=== PATIENT | female | born 1990 | race Native Hawaiian/Other Pacific Islander ===

== ENCOUNTER 2024-01-23 05:48 | Observation (INO) ==
--- NOTE | 2024-01-23 06:16 | History & Physical Report ---
Date of Service January 23, 2024 Assessment & Plan (1) premature rupture of membranes (PPROM) with unknown onset of labor: Plan: Patient is a transfer from [facility] practice that she had seen us earlier in the but had severe IUGR early in the last seen by 32 weeks she reported rupture of membranes approximately 30 minutes ago a big gush of clear fluid no contractions states her baby is moving she is concerned because her baby is small and is supposed to deliver at [place] she states. Physical exam was performed sterile spec reveals a large pool of fluid in the vagina cervix appears closed nitrazine and ferning are positive Ultrasound is performed baby is in breech position 35 weeks and 5 days first baby complicated confirmed breech position contacted her [facility] maternal- medicine Spoke with Dr. Monsivais at [facility] accepts transfer recommend antibiotics patient does have a significant rash to Ancef recently spoke with the resident on labor and delivery at [place] recommend vancomycin as we do not have sensitivities no steroids indicated at this time will obtain a stat glucose as well make attempts to transfer in a timely fashion 40 minutes spent coordinating care and [id number]-[id number] GBS is drawn and will be sent with the patient as we do not have status at this time History of Present Illness Primary Care Provider: NO PCP KENDELL Calculator Estimated Delivery Date Method Current WG Current Estimate 02/22/24 Ultrasound #1 32w 4d Other Estimates 02/12/24 LMP (Certain) 34w 0d LMP: 05/08/23 : 1 Full term: 0 Premature: 0 Total Number of Induced Abortions: 0 Total Number of Spontaneous Abortions: 0 Ectopics: 0 Multiple births: 0 Number of Living Children: 0 and Delivery Plans Rubella Non Immune *PPX MMR LGSIL/ HPV + on Pap *Recommend Colpo--09/16 Recommend repeat colpo after delivery 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 Amnio recommended, not accepted. cardiac anomaly? *Seen at 24wk *ECHO via [facility]: Normal Allergies Allergy/AdvReac Type Severity Reaction Status Date / Time Cephalosporins Allergy Rash Verified 01/23/24 06:23 Home Medications Medication Instructions Recorded Confirmed Type acetone (urine) test (Ketone Urine #50 ea 09/18/23 01/01/24 Rx Test strips) blood-glucose meter (OneTouch #1 ea 09/18/23 01/01/24 Rx Verio Reflect Meter) lancets 33 gauge (OneTouch Delica #150 ea 09/18/23 01/01/24 Rx Plus Lancet) blood sugar diagnostic (OneTouch #50 ea 10/02/23 01/01/24 Rx Verio test strips) pen needle, diabetic 32 gauge x #100 ea 10/19/23 01/01/24 Rx 5/32" (BD Ultra-Fine Earlene Pen Needle) insulin NPH isoph U-100 human 100 24 unit subcut QPM 01/23/24 01/23/24 History unit/mL (3 mL) subcutaneous pen (Humulin N NPH U-100 Insulin KwikPen) vits no.130-ferrous fum 1 tab PO DAILY 01/23/24 01/23/24 History 27 mg iron-folic acid 800 mcg tablet ( Vitamin) Patient History Surgical History S/P tonsillectomy Family History Father Asthma Mother Diabetes Grandfather (Paternal) Prostate cancer Grandfather (Maternal) Diabetes Grandmother (Paternal) Heart disease Social History Smoking Status: Never smoker Do You Dip or Chew Tobacco: No; marital status: marital status details: Md woodruff (36) [phone] Current Living Situation: Spouse Current Living Situation Comment: lives with spouse, no pets. current occupational status: unemployed Physical Exam Constitutional: WD/WN, vitals as above well developed and well nourished Respiratory: normal respiratory effort, lungs clear to auscultation normal respiratory effort Cardiovascular: RRR, no murmur, no edema Gastrointestinal (Abdomen): normal bowel sounds, soft, nontender, no hepatosplenomegaly Coding Level of Care Code 05776 OP VST EST HI 40 MIN Diagnoses premature rupture of membranes (PPROM) with unknown onset of labor O42.919
[2024-01-23] MEDS: LACTATED RINGER'S 1,000 ML IV PRN (06:25)
[2024-01-23] MEDS: VANCOMYCIN HCL 1,000 MG in SODIUM CHLORIDE 0.9% 250 ML IV STA (06:53)
[2024-01-23 07:04] LABS: Hematocrit (blood only) 35.4 % (37.0-47.0); Hemoglobin 11.8 g/dl (12.0-16.0); Mean Corpuscular Hemoglobin 28.7 pg (25.0-34.0); Mean Corpuscular Hgb Conc 33.3 g/dL (32.0-36.0); Mean Corpuscular Volume 86.1 fL (80.0-100.0); Nucleated RBC # (auto) 0.03 K/uL (0.00-0.12); Nucleated RBC % (auto) 0.2 %; Platelet Count 115 K/uL (130-400); RDW Coefficient of Variation 15.5 % (11.5-14.5); RDW Standard Deviation 47.6 fL (36.4-46.3); Red Blood Count 4.11 M/uL (4.20-5.40); White Blood Count 12.36 K/ul (4.8-10.8)
[2024-01-23 07:17] VITALS: RESP 16; TEMP 97.9
[2024-01-23 07:47] VITALS: BP 131/66
[2024-01-23] MEDS: diphenhydrAMINE 50 MG/ML VIAL IV STA (07:53)
[2024-01-23 08:12] VITALS: PULSE 91; O2SAT 100
--- OUTSIDE RECORDS SUMMARY | 2024-01-23 17:03 | External Medical Summary | Continuity of Care Document ---
Author Name Unknown Organization [facility] [address] [place] Address [address] [facility] [address] [place] [id number] [id number] Date(s): 01/05/24 - 01/05/24 [facility] [address] [facility] Obstetrics and Gynecology [address] [facility] [address] [place] [id number] [phone] Discharge Disposition: Home or Self Care Attending Physician: RAMONA Mckeon Amy L Referring Physician: MD Jessica, Caesar Donald Allergies, Adverse Reactions, Alerts Substance Criticality Severity Reaction Reaction Severity Status cephalosporins rash Activ e Medications HumuLIN N KwikPen Start: 11/19/23 2:26:00 PM EDT, 8 unit =, subQ, qhs Start Date: 11/19/23 Status: Ordered PNV Start: 11/19/23 2:24:00 PM EDT, 1 tab, PO, Daily Start Date: 11/19/23 Status: Ordered Mental Status 01/05/24 Communication Barrier Present No Health Literacy Communication Barriers N ever Primary Language Cypriot Problem List Condition Confirmation Course Effective Dates Status Health St atus Informant Confirmed 05/08/23 Active Procedures Procedure Date Related Diagnosis Body Site Status Tonsillectomy 1997 Completed Results Most recent to oldest [Reference Range]: 1 Cervical Cancer Screen with HPV Outside Negative (07/16/23 1:49 PM) HPV (Other High Risk Outside) Detected (07/16/23 1:49 PM) Social History Social History Type Response Sex Female Patient Care team information Care Team Related Persons Name: MD ANKITA BEACH
== END 2024-01-23 08:25 | disposition short-term general hospital (02) | DRG 833 ==
LOC: OPB 05:48 → 4S1 05:52 → INTOOBSV 06:18